=== PATIENT | female | born 1955 | race Caucasian/White ===

== ENCOUNTER → 2017-11-19 | Outpatient (CLI) | payer OTHER ==
[~2017-11-19] VITALS: Ht 154.9 cm; Wt 73.5 kg
[~2017-11-19] MED LIST: AMITIZA24 MICROGR PO; ASPIRIN325 MG PO; Antivert PO; CALCIUM + D3 E1 EACH PO; GLUCOPHAGE1000 MG PO; LO-DOSE ASPIRIN81 M1 PO; Lipitor PO; NEXIUM20 MG PO; PRAVACHOL40 MG PO; PriLOSEC PO; VITAMIN D5000 UNI1 PO
== END | disposition home or self-care (01) ==
LOC: AMB 11:30
PROVIDERS: Internal Medicine
PROC: 0DJD8ZZ Inspection of Lower Intestinal Tract, Via Natural or Artificial Opening Endoscopic (ICD-10-PCS; principal; 2017-11-19)
DX: Z12.11 Encounter for screening for malignant neoplasm of colon (principal); K62.89 Other specified diseases of anus and rectum; K64.8 Other hemorrhoids; K59.04 Chronic idiopathic constipation; F32.9 Major depressive disorder, single episode, unspecified; E78.5 Hyperlipidemia, unspecified; Z82.5 Family history of asthma and other chronic lower respiratory diseases; Z82.49 Family history of ischemic heart disease and other diseases of the circulatory system; Z82.3 Family history of stroke; Z79.82 Long term (current) use of aspirin
CPT/HCPCS: 82948